=== PATIENT | female | born 1960 | race Caucasian/White ===

== ENCOUNTER → 2024-01-15 15:08 | Outpatient (REF) | payer OTHER, SELFPAY | LOC: HWRAD 15:08 | PROVIDERS: ATTENDING PHYSICIAN Internal Medicine; FAMILY PHYSICIAN Physician Assistant Medical | DX: E04.1 Nontoxic single thyroid nodule (principal) | CPT/HCPCS: 76536 ==

== ENCOUNTER → 2024-02-06 12:18 | Outpatient (REF) | payer OTHER, SELFPAY ==
[2024-02-06 12:34] VITALS: BP 146/63; BP_SYST 76
== END ==
LOC: RADI 12:18
PROVIDERS: ATTENDING PHYSICIAN Internal Medicine
DX: E04.2 Nontoxic multinodular goiter (principal)
CPT/HCPCS: 88173; 10005

== ENCOUNTER 2024-12-14 21:21 | Emergency (ER) | payer OTHER, SELFPAY ==
[2024-12-14 21:23] VITALS: BP 168/82
--- NOTE | 2024-12-14 22:41 | ED.SKININJ ---
HPI-Injury
General
Chief Complaint: Skin Surface Trauma
Source: patient
Exam Limitations: none
Time Seen by Provider: 12/14/24 21:44
Nursing documentation reviewed up to this point in time: agreed with
History of Present Illness-Injury
Initial Injury comments:
64-year-old female cut her distal right index finger on an immersion salvage winder blade at 6 PM. Unsure of last Tdap
Past History
Past History
ED Past Medical History: None
ED Past Surgical History: Gynecological (Hysteroscopy, D&C)
Social History
Tobacco: Non-smoker
Alcohol: Occasional
Personal:
Living: with family
Employment: Employed
Review of Systems
Review of Systems
Allergies reviewed?: Yes
All Other Systems: ROS reviewed and negative except as documented in HPI and ROS
Skin: Reports other (laceration tip of R index finger)
Skin Exam
Avulsion
tip of right index finger and 3 mm of nail:
Type of avulsion injury: avulsion
Any active bleeding?: low grade venous oozing
Distal skin color and temperature: normal-warm & good color
Phy Exam
Physical Exam
Physical Exam:
PHYSICAL EXAMINATION:
General: no apparent distress, not acutely ill
Neuro: alert and oriented.
Psychiatric: well kept. interactive and cooperative
Musculoskeletal: Moves with ease
Skin: Warm, pink.
Course
Orders/Labs/Results
Orders:
Orders
12/14/24 22:42
Tetanus/Diphth/Acelpertussis [Adacel] 0.5 ml IM .ONCE ONE
Vital Signs
Initial and Last Documented VS:
Initial Vital Signs
Temp Pulse Resp BP Pulse Ox
97.9 F 89 16 168/82 98
12/14/24 21:23 12/14/24 21:23 12/14/24 21:23 12/14/24 21:23 12/14/24 21:23
Last Documented Vital Signs
Temp Pulse Resp BP Pulse Ox
97.9 F 89 16 168/82 98
12/14/24 21:23 12/14/24 21:23 12/14/24 21:23 12/14/24 21:23 12/14/24 21:23
MDM/Problems Addressed
MDM/Problems Addressed:
64-year-old female cut her distal right index finger on an immersion salvage winder blade at 6 PM. Unsure of last Tdap
Tdap updated
Wound cleansed with normal saline solution, pressure applied and bleeding controlled then Gelfoam and tube gauze dressing applied with good hemostasis.
*Critical Care Note
Total Time (30-74mins, 75-104mins- exclusive of procedures): Not Applicable
ED Attending Note
-
Portions of this chart may have been created with voice recognition software.� Occasional wrong word or��sound alike� substitutions may have occurred due to the inherent limitations of voice recognition software.
Discharge Plan
Departure
Patient Disposition: Home (Routine Discharge)
Date of Disposition: 12/14/24
Time of Disposition: 22:45
Patient with high blood pressure during this ER visit?: No
Condition: Good
Discharge Problem:
Fingertip avulsion
Instructions: Wound care - ED discharge instructions
Prescriptions:
No Action
multivitamin Tablet
1 tab PO DAILY
calcium 250 mg Tablet
250 mg PO DAILY
magnesium 250 mg Tablet
250 mg PO DAILY
Vision Multivitamin Tablet
1 tab PO DAILY
lisinopril 2.5 mg Tablet
2.5 mg PO DAILY
rosuvastatin 10 mg Tablet
10 mg PO DAILY
metformin 500 mg Tablet Extended Release 24 Hr
500 mg PO DAILY
Zepbound 15 mg/0.5 mL Pen Injector
15 mg SC WEEKLY
Rx Instructions:
Sunday mornings
iron
65 mg PO DAILY
[place] 3 Fish Oil
2 tab PO DAILY
Referrals:
Eduard Resendiz PA-C [Family Provider] - As needed
Activity Restrictions/Additional Instructions:
As we discussed, keep the tube gauze dressing on until Sunday morning when you can remove it.
Keep the area clean, dry until then
After remove the gauze on Sunday, you may remove the Gelfoam (you may have to gently soak it off)
Then wash the area daily with soap and water as usual in the shower, apply antibiotic ointment, Band-Aids and use the aluminum fingertip splint as needed for protection.
Do this daily until the wound is healed
Interventions
Interventions:
*Risk Screen - Suicide Last Done: 12/14/24 21:23
*General Assessment Last Done: 12/14/24 21:44
*Neglect/Abuse Screening Last Done: 12/14/24 21:23
*ED- Fall Risk Assessment Last Done: 12/14/24 21:23
*ED COVID-19 Vaccine History Last Done: 12/14/24 21:23
ED-Skin Assessment Last Done: 12/14/24 21:44
Discharge Date and Time
Print Language: PERSIAN
[2024-12-14] MEDS: ADACEL 0.5 ML IM (23:05)
== END 2024-12-14 22:10 | disposition home or self-care (01) ==
LOC: EMR 21:21
PROVIDERS: EMERGENCY PHYSICIAN Emergency Medicine; FAMILY PHYSICIAN Physician Assistant Medical
DX: S61.310A Laceration without foreign body of right index finger with damage to nail, initial encounter (principal); W31.89XA Contact with other specified machinery, initial encounter; Z23 Encounter for immunization; G47.30 Sleep apnea, unspecified; Z88.5 Allergy status to narcotic agent
CPT/HCPCS: 99283; 90471; 90715

== ENCOUNTER → 2025-02-03 08:21 | Outpatient (REF) | payer OTHER, SELFPAY | LOC: HWWDC 08:21 | PROVIDERS: ATTENDING PHYSICIAN Physician Assistant Medical | DX: Z12.31 Encounter for screening mammogram for malignant neoplasm of breast (principal) | CPT/HCPCS: 77063; 77067 ==

== ENCOUNTER → 2025-02-17 09:11 | Outpatient (REF) | payer OTHER, SELFPAY | LOC: WDC 09:11 | PROVIDERS: ATTENDING PHYSICIAN Physician Assistant Medical | DX: R92.8 Other abnormal and inconclusive findings on diagnostic imaging of breast (principal) | CPT/HCPCS: 77065 ==

== ENCOUNTER → 2025-02-20 07:06 | Outpatient (REF) | payer OTHER, SELFPAY ==
--- NOTE | 2025-02-20 09:14 | OID.BR.INTR ---
OID Breast Navigator - Initial
- -
Date of Contact: 02/20/25
Met with patient. Patient given written information on navigator services available at [facility]. Will follow up as needed per protocol.
== END ==
LOC: WDC 07:06
PROVIDERS: ATTENDING PHYSICIAN Physician Assistant Medical
DX: R92.1 Mammographic calcification found on diagnostic imaging of breast (principal)
CPT/HCPCS: 88305; 19081; 76098; A4648

== ENCOUNTER 2025-03-20 06:20 | Day surgery (SDC) | payer OTHER, SELFPAY | END 2025-03-20 10:20 | disposition home or self-care (01) | LOC: GI 06:20 | PROVIDERS: ATTENDING PHYSICIAN Internal Medicine Gastroenterology; FAMILY PHYSICIAN Physician Assistant Medical | DX: Z12.11 Encounter for screening for malignant neoplasm of colon (principal); K57.30 Diverticulosis of large intestine without perforation or abscess without bleeding; Z86.0101 Personal history of adenomatous and serrated colon polyps | CPT/HCPCS: G0105 ==

== ENCOUNTER → 2025-03-25 12:48 | Outpatient (REF) | payer OTHER, SELFPAY | LOC: WDC 12:48 | PROVIDERS: ATTENDING PHYSICIAN Surgery | DX: N60.99 Unspecified benign mammary dysplasia of unspecified breast (principal) | CPT/HCPCS: 19281; A4648 ==

== ENCOUNTER 2025-03-26 06:16 | Day surgery (SDC) | payer OTHER, SELFPAY ==
[2025-03-18 08:00] VITALS: BMI 33.8
[2025-03-18 08:45] LABS: Hematocrit 36.0 % (37.0-47.0); Hemoglobin 11.9 g/dL (12.0-16.0); Mean Corp Hgb Conc. 33.1 g/dL (33.0-37.0); Mean Corpuscular Volume 91.1 fL (81.0-99.0); Platelet Count 344 10^3/uL (130-400); Red Cell Dist. Width 13.2 % (11.5-14.5)
[2025-03-18 09:06] LABS: ALT (SGPT) 24 U/L (0-35); AST (SGOT) 20 U/L (14-36); Albumin 4.7 g/dl (3.5-5.0); Alkaline Phosphatase 50 U/L (38-126); Blood Urea Nitrogen 15 mg/dl (7-17); Calcium 10.0 mg/dl (8.4-10.2); Carbon Dioxide 30 mmol/L (22-30); Chloride 101 mmol/L (98-107); Estimated Creatinine Clearance 97 ml/min; Glucose 87 mg/dl (70-99); Potassium 4.6 mmol/L (3.5-5.1); Sodium 133 mmol/L (135-145); Total Protein 6.8 g/dl (6.3-8.2); eGFR > 60.00
[2025-03-18 09:36] LABS: Prealbumin (Transthyretin) 32.8 mg/dl (17.6-36.0)
[2025-03-18 09:46] LABS: Vitamin D, 25-OH*** 51.2 ng/mL (30-80)
[2025-03-26] MEDS: TYLENOL 1000 MG PO (12:27)
[2025-03-26] MEDS: EMEND 40 MG PO (12:29)
[2025-03-26 12:30] VITALS: BMI 33.8
[2025-03-26 12:31] VITALS: BP 147/68
[2025-03-26] MEDS: NORMOSOL-R/PLASMALYTE-A 1000 IV (12:48)
[2025-03-26 13:03] LABS: Glucose - Point of Care 105 mg/dl (70-99)
--- NOTE | 2025-03-26 15:09 | W.SUR.PREOP ---
Pre-Operative Surgical Note
-
I have examined this patient prior to the performance of the scheduled procedure.
The patient's condition is unchanged from the time of the current History and
Physical and the patient is able to undergo the scheduled procedure.
--- NOTE | 2025-03-26 15:09 | W.IMMPOSTOP ---
Surgical Immed Post Op Note
-
Primary Surgeon: Kev
Assisting Surgeon: None
Pre-op Diagnosis: Left breast atypical ductal hyperplasia
Post-op Diagnosis: Same
Procedure Performed: Left localized lumpectomy
Anesthesia Type: TIVA
Specimen / Cultures: Left lumpectomy
Estimated Blood Loss: 2cc
Complications: None
Operative Findings: Clip, reflector and calcs in specimen
[2025-03-26 15:11] VITALS: BP 105/52
--- NOTE | 2025-03-26 15:11 | OR.RPT ---
Operative Report
Operative Report
Date of surgery: 03/26/2025
Surgeon: Kev
Preoperative diagnosis: Left breast atypical ductal hyperplasia
Postoperative diagnosis: Left breast atypical ductal hyperplasia
Procedure: Left localized lumpectomy
Patient is a 64-year-old female who developed an interval change on screening mammography leading to a stereotactic biopsy showing atypical ductal hyperplasia of the left breast. She presents for left localized lumpectomy to rule out upstaging. On
the day prior to the procedure, the patient presented to the [facility] where a Carie reflector was placed in the appropriate location. On the day of surgery, she presented to same-day surgical services where she was prepped. DVT and
antibiotic prophylaxis were provided and she was taken to the operating room.
In the supine position intravenous sedation was delivered. Left wrist was prepped and draped in the usual sterile fashion and an appropriate timeout was performed by all staff members. Local anesthesia in the form of lidocaine 1% plain was
instilled into all tissues. The Carie probe was used to sound out the the signal. An inferior circumareolar incision was made sharply with the blade. A skin flap was elevated with the cautery and a wide lumpectomy was performed using the cautery.
There was a Carie reflector signal within the specimen. Time out of body was noted and the specimen was oriented for the pathologist. Specimen radiography confirmed the presence of clip, calcifications, and reflector within it.
Hemostasis was carefully maintained with the cautery. Marcaine 0.5% plain was instilled into all tissues. The wound was closed using simple interrupted 3-0 plain on deep intermediate and subcutaneous tissue. The skin was closed using a running
subcuticular 4-0 Monocryl. Surgical glue and sterile compressive dressings were applied. All sponge needle and instrument counts were correct and the patient was transferred to the recovery room in stable condition.
()
[2025-03-26 15:15] VITALS: BP 111/57
[2025-03-26 15:30] VITALS: BP 96/69
== END 2025-03-26 15:48 | disposition home or self-care (01) ==
LOC: SDS 06:16
PROVIDERS: ATTENDING PHYSICIAN Surgery; FAMILY PHYSICIAN Physician Assistant Medical
DX: N60.92 Unspecified benign mammary dysplasia of left breast (principal); D24.2 Benign neoplasm of left breast
CPT/HCPCS: 19301; 36415; 76098; 80053; 82306; 82962; 84134; 85027; 88307; 93005

== ENCOUNTER → 2025-08-14 08:35 | Outpatient (REF) | payer OTHER, SELFPAY | LOC: MRI 3T 08:35 | PROVIDERS: ATTENDING PHYSICIAN Surgery; FAMILY PHYSICIAN Physician Assistant Medical | DX: N60.99 Unspecified benign mammary dysplasia of unspecified breast (principal) | CPT/HCPCS: 77049; A9585 ==